=== PATIENT | female | born 1965 | race Caucasian/White ===

== ENCOUNTER → 2020-06-19 08:54 | Outpatient (BNVA) | payer MEDICARE, MEDICAID, SELFPAY | PROVIDERS: Visit Provider Anesthesiology | DX: M96.1 Postlaminectomy syndrome, not elsewhere classified (principal); G89.4 Chronic pain syndrome; F11.20 Opioid dependence, uncomplicated | CPT/HCPCS: 99212 ==

== ENCOUNTER 2023-09-30 09:32 | Outpatient (REF) | payer MEDICARE, MEDICAID, SELFPAY | END 2023-09-30 09:33 | disposition home or self-care (01) | LOC: HO.MRI 09:32 | PROVIDERS: PCP Registered Nurse; Visit Provider Otolaryngology | DX: Z13.89 Encounter for screening for other disorder (principal) ==